=== PATIENT | female | born 2000 | race Caucasian/White ===

== ENCOUNTER 2022-04-18 17:29 | Emergency (ER) | payer MEDICAID ==
[~2022-04-18] VITALS: Ht 167.6 cm; Wt 78.0 kg
[2022-04-18 17:52] VITALS: BP 104/71
[2022-04-18] MEDS ORDERED: FLUT9.9S BOTHNSTRLS (20:14)
[2022-04-18] MEDS ORDERED: BENZ100C86 MT (20:14)
== END 2022-04-18 18:45 | disposition home or self-care (01) ==
LOC: ER 17:29
DX: J32.9 Chronic sinusitis, unspecified (principal)
CPT/HCPCS: 81025; 99282